=== PATIENT | female | born 1955 | race Caucasian/White ===

== ENCOUNTER 2020-08-10 15:53 | Outpatient (CLI) | payer OTHER ==
--- NOTE | 2020-08-10 16:32 | RAD ---
Exam: XR Hand Lt 3 View STANDARD HISTORY: Left hand pain. COMPARISON: 02/22/2020 FINDINGS: Tiny erosions are seen at the radial aspect base of the proximal phalanx of the ring and small finger s. 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 No fracture or dislocation is identified. No other interval change when compared to prior study. IMPRESSION: No acute osseous abnormality is identified.
== END 2020-08-10 15:54 | disposition home or self-care (01) ==
LOC: BICRAD 15:53
PROVIDERS: ATTEND Clinical Nurse Specialist Medical-Surgical
DX: M79.642 Pain in left hand (principal)